=== PATIENT | female | born 1985 | race Caucasian/White ===

== ENCOUNTER 2023-01-09 09:00 | Inpatient (IN) | payer MEDICARE, MEDICAID ==
[~2023-01-09] VITALS: Ht 165.1 cm; Wt 70.9 kg
[~2023-01-09 09:00] MED LIST: CLON-595 PO; HALO2 PO; LAMO100 PO; METF-1211 PO; MIRT-89 PO; PREG50 PO; SERT-162 PO; TRAZ-257 PO
[2023-01-09] MEDS ORDERED: MAGNESIUM HYDROXIDE SUSPENSION 30 ML UDCUP PO PRN (10:15)
[2023-01-09] MEDS ORDERED: LOPERAMIDE HCL 2 MG CAPSULE PO PRN ×2 (10:15)
[2023-01-09] MEDS ORDERED: MAG HYDROX/AL HYDROX/SIMETH ES 30 ML SUSPENSION UDCUP PO PRN (10:15)
[2023-01-09] MEDS ORDERED: GuaiFENesin/D-METHORPHAN [SUGAR-FREE] 200-20MG/10 ML SYRUP UDCUP PO PRN (10:15)
[2023-01-09] MEDS ORDERED: TUBERCULIN, PURIFIED PROTEIN DERIVATIVE 5 TU/0.1 ML SYRINGE ID ONE (10:15)
[2023-01-09] MEDS ORDERED: DIAZEPAM 10 MG TABLET PO PRN (10:15)
[2023-01-09] MEDS ORDERED: HydrOXYzine PAMOATE 50 MG CAPSULE PO PRN (10:15)
[2023-01-09] MEDS ORDERED: CYANOCOBALAMIN 1,000 MCG/ML VIAL IM ONE (10:15)
[2023-01-09] MEDS ORDERED: ZOLPIDEM TARTRATE 10 MG TABLET PO PRN (10:15)
[2023-01-09 11:43] VITALS: BP 117/78
[2023-01-09 13:42] LABS: GLUCOMETER DEV NAME(LOC) POC.BV
[2023-01-09 13:48] VITALS: BP 117/79
[2023-01-09 15:00] VITALS: BP 113/77
[2023-01-09 16:00] VITALS: BP 122/72
[2023-01-09 17:00] VITALS: BP 108/74
[2023-01-09] MEDS ORDERED: INFLUENZA VIRUS VACCINE QVS 2022-23 (6MO+)/PF 60 MCG/0.5 ML SYRINGE IM. ONE (17:30)
[2023-01-09] MEDS: HALOPERIDOL 1 MG TABLET PO SCH (18:11)
[2023-01-09] MEDS: THIAMINE 100 MG TABLET PO SCH (18:12)
[2023-01-09 20:11] VITALS: BP 112/75
[2023-01-09] MEDS: MELATONIN 5 MG TABLET PO SCH (21:41)
[2023-01-09] MEDS: TraZODone HCL 150 MG TABLET PO SCH (21:41)
[2023-01-09] MEDS: MIRTAZAPINE 30 MG TABLET PO SCH (21:42)
[2023-01-09] MEDS ORDERED: GLUCAGON,HUMAN RECOMBINANT 1 MG VIAL IM PRN (22:15)
[2023-01-09] MEDS ORDERED: INSULIN LISPRO 100 UNITS/ML SQ PRN (22:15)
[2023-01-10] VITALS (10 sets, daily range): BP systolic 105–140; BP diastolic 63–90
[2023-01-10 06:46] LABS: GLUCOMETER DEV NAME(LOC) BV2X.2; GLUCOSE,POINT OF CARE 76 MG/DL (70-110)
[2023-01-10] MEDS ORDERED: DIAZEPAM 10 MG TABLET PO PRN (07:00)
[2023-01-10 07:37] LABS: BASOPHILS % (AUTO) 0.5 % (0.0-2.0); EOSINOPHILS % (AUTO) 1.6 % (1.0-6.0); HEMATOCRIT 34.8 % (36-46); HEMOGLOBIN 11.1 g/dL (12.0-16.0); LYMPHOCYTES # (AUTO) 1.8 K/uL (1.0-4.8); LYMPHOCYTES % (AUTO) 29.3 % (22.0-44.0); MEAN CORPUSCULAR HEMOGLOBIN 24.1 pg (26.0-34.0); MEAN CORPUSCULAR HGB CONC 31.8 G/dL (31.0-37.0); MEAN CORPUSCULAR VOLUME 76 fL (80-100); MONOCYTES # (AUTO) 0.4 K/uL (0.1-1.0); MONOCYTES % (AUTO) 7.1 % (2.0-9.0); NEUTROPHILS # (AUTO) 3.7 K/uL (1.8-7.7); NEUTROPHILS % (AUTO) 61.5 % (40.0-70.0); PLATELET COUNT (AUTO) 301 K/uL (150-450); RED BLOOD CELL COUNT(AUTO) 4.58 MIL/uL (4.00-5.20); RED CELL DISTRIBUTION WIDTH 18.8 % (11.5-14.5)
[2023-01-10 07:44] LABS: HEMOGLOBIN A1C 5.2 % (3.8-5.6)
[2023-01-10 07:57] LABS: AMPHET/METH SCREEN,URINE NEGATIVE (NEGATIVE); BARBITURATE SCREEN, URINE NEGATIVE (NEGATIVE); BENZODIAZEPINES SCREEN,URINE NEGATIVE (NEGATIVE); CANNABINOID SCREEN,URINE NEGATIVE (NEGATIVE); COCAINE SCREEN,URINE NEGATIVE (NEGATIVE); METHADONE SCREEN, URINE NEGATIVE (NEGATIVE); OPIATE SCREEN,URINE NEGATIVE (NEGATIVE); PHENCYCLIDINE SCREEN,URINE NEGATIVE (NEGATIVE)
[2023-01-10 07:59] LABS: ALANINE AMINOTRANSFERASE 23 U/L (12-78); ALKALINE PHOSPHATASE 73 U/L (46-116); ANION GAP 5 mmol/L (8-16); ASPARTATE AMINOTRANSFERASE 21 U/L (15-37); BILIRUBIN,TOTAL 0.2 mg/dL (0.1-1.0); CARBON DIOXIDE 31 mmol/L (22-29); CHLORIDE 106 mmol/L (98-107); CHOL/HDL RATIO 3.2 (3.9-5.7); CHOLESTEROL 155 mg/dL (131-200); CREATININE 0.92 mg/dL (0.60-1.30); FREE T4 (FREE THYROXINE) 1.11 ng/dL (0.76-1.46); GLOMERULAR FILTR. RATE CALC > 60 mL/min (>60); GLUCOSE,RANDOM 82 mg/dL (70-110); HDL CHOLESTEROL 49 mg/dL (40-60); LDL CHOL (CALC.) 93 mg/dL (0-130); POTASSIUM 3.9 mmol/L (3.5-5.1); SODIUM SERUM 142 mmol/L (136-145); THYROID STIMULATING HORMONE 3.49 uIU/mL (0.36-3.74); TOTAL PROTEIN, SERUM 7.7 g/dL (6.4-8.2); TRIGLYCERIDES 65 mg/dL (15-150); UREA NITROGEN, BLOOD 13 mg/dL (7-18)
[2023-01-10] MEDS: HALOPERIDOL 1 MG TABLET PO SCH ×3 (08:45→16:08)
[2023-01-10] MEDS: SERTRALINE HCL 100 MG TABLET PO SCH (08:45)
[2023-01-10] MEDS: NALTREXONE HCL 50 MG TABLET PO SCH (08:45)
[2023-01-10] MEDS: LamoTRIgine 100 MG TABLET PO SCH (08:45)
[2023-01-10] MEDS: THIAMINE 100 MG TABLET PO SCH ×2 (08:45→16:08)
[2023-01-10] MEDS: OMEGA-3/DHA/EPA/FISH OIL 1,000 MG CAPSULE PO SCH (08:45)
[2023-01-10] MEDS: DIAZEPAM 10 MG TABLET PO SCH ×4 (08:45→20:34)
[2023-01-10] MEDS: MetFORMIN HCL 500 MG TABLET PO SCH (08:45)
[2023-01-10] MEDS: MULTIVITAMINS WITH MINERALS, THERAPEUTIC TABLET PO SCH (08:45)
[2023-01-10] MEDS: FOLIC ACID 1 MG TABLET PO SCH (08:46)
[2023-01-10] MEDS: ACETAMINOPHEN 325 MG TABLET PO PRN (12:49)
[2023-01-10 17:01] LABS: GLUCOMETER DEV NAME(LOC) BV2X.2; GLUCOSE,POINT OF CARE 121 MG/DL (70-110)
[2023-01-10] MEDS: TraZODone HCL 150 MG TABLET PO SCH (20:31)
[2023-01-10] MEDS: MIRTAZAPINE 30 MG TABLET PO SCH (20:32)
[2023-01-10] MEDS: MELATONIN 5 MG TABLET PO SCH (20:32)
[2023-01-11] VITALS (9 sets, daily range): BP systolic 120–142; BP diastolic 71–90
[2023-01-11 06:51] LABS: GLUCOMETER DEV NAME(LOC) BV2X.2; GLUCOSE,POINT OF CARE 81 MG/DL (70-110)
[2023-01-11] MEDS: NALTREXONE HCL 50 MG TABLET PO SCH (09:12)
[2023-01-11] MEDS: MetFORMIN HCL 500 MG TABLET PO SCH (09:12)
[2023-01-11] MEDS: SERTRALINE HCL 100 MG TABLET PO SCH (09:12)
[2023-01-11] MEDS: MULTIVITAMINS WITH MINERALS, THERAPEUTIC TABLET PO SCH (09:12)
[2023-01-11] MEDS: HALOPERIDOL 1 MG TABLET PO SCH ×3 (09:12→16:21)
[2023-01-11] MEDS: FOLIC ACID 1 MG TABLET PO SCH (09:12)
[2023-01-11] MEDS: THIAMINE 100 MG TABLET PO SCH ×2 (09:12→16:21)
[2023-01-11] MEDS: LamoTRIgine 100 MG TABLET PO SCH (09:13)
[2023-01-11] MEDS: DIAZEPAM 10 MG TABLET PO SCH ×4 (09:13→20:04)
[2023-01-11] MEDS: OMEGA-3/DHA/EPA/FISH OIL 1,000 MG CAPSULE PO SCH (09:13)
[2023-01-11 16:47] LABS: GLUCOMETER DEV NAME(LOC) BV2X.2; GLUCOSE,POINT OF CARE 108 MG/DL (70-110)
[2023-01-11] MEDS: MIRTAZAPINE 30 MG TABLET PO SCH (20:03)
[2023-01-11] MEDS: ACETAMINOPHEN 325 MG TABLET PO PRN (20:04)
[2023-01-11] MEDS: MELATONIN 5 MG TABLET PO SCH (20:04)
[2023-01-11] MEDS: TraZODone HCL 150 MG TABLET PO SCH (20:04)
[2023-01-12 03:00] VITALS: BP 128/84
[2023-01-12] MEDS ORDERED: DIAZEPAM 5 MG TABLET PO PRN (07:00)
[2023-01-12 07:09] VITALS: BP 113/64
[2023-01-12 07:11] LABS: GLUCOMETER DEV NAME(LOC) BV2X.2; GLUCOSE,POINT OF CARE 155 MG/DL (70-110)
[2023-01-12] MEDS: THIAMINE 100 MG TABLET PO SCH ×2 (08:11→16:31)
[2023-01-12] MEDS: MULTIVITAMINS WITH MINERALS, THERAPEUTIC TABLET PO SCH (08:11)
[2023-01-12] MEDS: DIAZEPAM 5 MG TABLET PO SCH ×3 (08:12→16:31)
[2023-01-12] MEDS: LamoTRIgine 100 MG TABLET PO SCH (08:12)
[2023-01-12] MEDS: OMEGA-3/DHA/EPA/FISH OIL 1,000 MG CAPSULE PO SCH (08:12)
[2023-01-12] MEDS: FOLIC ACID 1 MG TABLET PO SCH (08:12)
[2023-01-12] MEDS: HALOPERIDOL 1 MG TABLET PO SCH ×3 (08:13→16:31)
[2023-01-12] MEDS: SERTRALINE HCL 100 MG TABLET PO SCH (08:14)
[2023-01-12] MEDS: NALTREXONE HCL 50 MG TABLET PO SCH (08:14)
[2023-01-12 08:22] VITALS: BP 117/68
[2023-01-12 12:06] LABS: GLUCOMETER DEV NAME(LOC) BV2X.2; GLUCOSE,POINT OF CARE 136 MG/DL (70-110)
[2023-01-12 16:36] LABS: GLUCOMETER DEV NAME(LOC) BV2X.2; GLUCOSE,POINT OF CARE 73 MG/DL (70-110)
[2023-01-12] MEDS ORDERED: DIAZEPAM 10 MG TABLET PO PRN (19:45)
[2023-01-12 20:21] VITALS: BP 127/78
[2023-01-12] MEDS: TraZODone HCL 150 MG TABLET PO SCH (20:37)
[2023-01-12] MEDS: MELATONIN 5 MG TABLET PO SCH (20:38)
[2023-01-12] MEDS: MIRTAZAPINE 30 MG TABLET PO SCH (20:38)
[2023-01-13 06:31] LABS: GLUCOMETER DEV NAME(LOC) BV2X.2; GLUCOSE,POINT OF CARE 62 MG/DL (70-110)
[2023-01-13 06:57] LABS: GLUCOMETER DEV NAME(LOC) BV2X.2; GLUCOSE,POINT OF CARE 143 MG/DL (70-110)
[2023-01-13] MEDS ORDERED: DIAZEPAM 5 MG TABLET PO PRN (07:00)
[2023-01-13] MEDS ORDERED: DIAZEPAM 10 MG TABLET PO PRN (07:00)
[2023-01-13] MEDS: LamoTRIgine 100 MG TABLET PO SCH (08:02)
[2023-01-13] MEDS: THIAMINE 100 MG TABLET PO SCH ×2 (08:02→16:26)
[2023-01-13] MEDS: SERTRALINE HCL 100 MG TABLET PO SCH (08:02)
[2023-01-13] MEDS: OMEGA-3/DHA/EPA/FISH OIL 1,000 MG CAPSULE PO SCH (08:02)
[2023-01-13] MEDS: DIAZEPAM 10 MG TABLET PO SCH ×2 (08:03→13:10)
[2023-01-13] MEDS: FOLIC ACID 1 MG TABLET PO SCH (08:03)
[2023-01-13] MEDS: NALTREXONE HCL 50 MG TABLET PO SCH (08:03)
[2023-01-13] MEDS: MULTIVITAMINS WITH MINERALS, THERAPEUTIC TABLET PO SCH (08:03)
[2023-01-13 08:19] VITALS: BP 110/55
[2023-01-13] MEDS: ACAMPROSATE CALCIUM 333 MG DR TABLET PO SCH (16:26)
[2023-01-13 17:43] VITALS: BP 140/80
[2023-01-13] MEDS: ACETAMINOPHEN 325 MG TABLET PO PRN (17:43)
[2023-01-13 19:21] LABS: GLUCOMETER DEV NAME(LOC) BV2X.2; GLUCOSE,POINT OF CARE 121 MG/DL (70-110)
[2023-01-13] MEDS: MIRTAZAPINE 30 MG TABLET PO SCH (20:31)
[2023-01-13] MEDS: MELATONIN 5 MG TABLET PO SCH (20:31)
[2023-01-13] MEDS ORDERED: TraZODone HCL 150 MG TABLET PO SCH (21:00)
[2023-01-13 21:29] VITALS: BP 140/80
[2023-01-14 06:26] LABS: GLUCOMETER DEV NAME(LOC) BV2X.2; GLUCOSE,POINT OF CARE 67 MG/DL (70-110)
[2023-01-14 07:00] LABS: GLUCOMETER DEV NAME(LOC) BV2X.2; GLUCOSE,POINT OF CARE 89 MG/DL (70-110)
[2023-01-14 08:08] VITALS: BP 111/73
[2023-01-14] MEDS: OMEGA-3/DHA/EPA/FISH OIL 1,000 MG CAPSULE PO SCH (08:16)
[2023-01-14] MEDS: ACAMPROSATE CALCIUM 333 MG DR TABLET PO SCH ×3 (08:16→16:29)
[2023-01-14] MEDS: FOLIC ACID 1 MG TABLET PO SCH (08:17)
[2023-01-14] MEDS: LamoTRIgine 100 MG TABLET PO SCH (08:17)
[2023-01-14] MEDS: THIAMINE 100 MG TABLET PO SCH ×2 (08:18→16:29)
[2023-01-14] MEDS: SERTRALINE HCL 100 MG TABLET PO SCH (08:18)
[2023-01-14] MEDS: NALTREXONE HCL 50 MG TABLET PO SCH (08:18)
[2023-01-14] MEDS: MULTIVITAMINS WITH MINERALS, THERAPEUTIC TABLET PO SCH (08:18)
[2023-01-14] MEDS: PROMETHAZINE HCL 25 MG TABLET PO PRN (08:35)
[2023-01-14] MEDS ORDERED: DIAZEPAM 10 MG TABLET PO PRN (14:45)
[2023-01-14] MEDS ORDERED: DIAZEPAM 10 MG TABLET PO ONE (14:45)
[2023-01-14 15:52] VITALS: BP 144/91
[2023-01-14 16:41] LABS: GLUCOMETER DEV NAME(LOC) BV2X.2; GLUCOSE,POINT OF CARE 103 MG/DL (70-110)
[2023-01-14 17:00] VITALS: BP 139/94
[2023-01-14 18:00] VITALS: BP 130/82
[2023-01-14 18:18] VITALS: BP 144/91
[2023-01-14] MEDS: ACETAMINOPHEN 325 MG TABLET PO PRN (18:18)
[2023-01-14 20:21] VITALS: BP 131/81
[2023-01-14] MEDS: MELATONIN 5 MG TABLET PO SCH (20:59)
[2023-01-14] MEDS: MIRTAZAPINE 30 MG TABLET PO SCH (21:00)
[2023-01-14] MEDS: TraZODone HCL 100 MG TABLET PO SCH (21:00)
[2023-01-15] VITALS (8 sets, daily range): BP systolic 125–141; BP diastolic 75–94
[2023-01-15 06:42] LABS: GLUCOMETER DEV NAME(LOC) BV2X.2; GLUCOSE,POINT OF CARE 74 MG/DL (70-110)
[2023-01-15] MEDS ORDERED: DIAZEPAM 5 MG TABLET PO PRN (07:00)
[2023-01-15] MEDS ORDERED: DIAZEPAM 10 MG TABLET PO PRN (07:00)
[2023-01-15] MEDS: ACAMPROSATE CALCIUM 333 MG DR TABLET PO SCH ×3 (08:16→16:23)
[2023-01-15] MEDS: FOLIC ACID 1 MG TABLET PO SCH (08:17)
[2023-01-15] MEDS: OMEGA-3/DHA/EPA/FISH OIL 1,000 MG CAPSULE PO SCH (08:17)
[2023-01-15] MEDS: THIAMINE 100 MG TABLET PO SCH ×2 (08:17→16:23)
[2023-01-15] MEDS: SERTRALINE HCL 100 MG TABLET PO SCH (08:18)
[2023-01-15] MEDS: NALTREXONE HCL 50 MG TABLET PO SCH (08:18)
[2023-01-15] MEDS: MULTIVITAMINS WITH MINERALS, THERAPEUTIC TABLET PO SCH (08:18)
[2023-01-15] MEDS: LISINOPRIL 5 MG TABLET PO SCH (08:19)
[2023-01-15] MEDS: LamoTRIgine 100 MG TABLET PO SCH (08:19)
[2023-01-15] MEDS: DIAZEPAM 10 MG TABLET PO SCH ×5 (08:32→22:10)
[2023-01-15] MEDS ORDERED: DIAZEPAM 5 MG TABLET PO SCH (09:00)
[2023-01-15 10:51] LABS: GLUCOMETER DEV NAME(LOC) POC.BV
[2023-01-15 16:56] LABS: GLUCOMETER DEV NAME(LOC) BV2X.2; GLUCOSE,POINT OF CARE 106 MG/DL (70-110)
[2023-01-15] MEDS: MIRTAZAPINE 30 MG TABLET PO SCH (20:54)
[2023-01-15] MEDS: MELATONIN 5 MG TABLET PO SCH (20:54)
[2023-01-15] MEDS: TraZODone HCL 100 MG TABLET PO SCH (21:00)
[2023-01-16 06:21] LABS: GLUCOMETER DEV NAME(LOC) BV2X.2; GLUCOSE,POINT OF CARE 75 MG/DL (70-110)
[2023-01-16] MEDS ORDERED: DIAZEPAM 5 MG TABLET PO PRN (07:00)
[2023-01-16 08:12] VITALS: BP 106/60
[2023-01-16 08:14] VITALS: BP 106/60
[2023-01-16 08:15] VITALS: BP 106/60
[2023-01-16] MEDS: ACAMPROSATE CALCIUM 333 MG DR TABLET PO SCH ×3 (08:18→17:57)
[2023-01-16] MEDS: NALTREXONE HCL 50 MG TABLET PO SCH (08:18)
[2023-01-16] MEDS: OMEGA-3/DHA/EPA/FISH OIL 1,000 MG CAPSULE PO SCH (08:18)
[2023-01-16] MEDS: DIAZEPAM 10 MG TABLET PO SCH ×4 (08:19→20:50)
[2023-01-16] MEDS: MULTIVITAMINS WITH MINERALS, THERAPEUTIC TABLET PO SCH (08:19)
[2023-01-16] MEDS: SERTRALINE HCL 100 MG TABLET PO SCH (08:20)
[2023-01-16] MEDS: LISINOPRIL 5 MG TABLET PO SCH (08:20)
[2023-01-16] MEDS: THIAMINE 100 MG TABLET PO SCH ×2 (08:20→17:29)
[2023-01-16] MEDS: LamoTRIgine 100 MG TABLET PO SCH (08:20)
[2023-01-16] MEDS: FOLIC ACID 1 MG TABLET PO SCH (08:20)
[2023-01-16 17:21] LABS: GLUCOMETER DEV NAME(LOC) BV2X.2; GLUCOSE,POINT OF CARE 87 MG/DL (70-110)
[2023-01-16 20:00] VITALS: BP 109/61
[2023-01-16] MEDS: TraZODone HCL 100 MG TABLET PO SCH (20:50)
[2023-01-16] MEDS: MELATONIN 5 MG TABLET PO SCH (20:50)
[2023-01-16] MEDS: MIRTAZAPINE 30 MG TABLET PO SCH (20:53)
[2023-01-17 06:21] LABS: GLUCOMETER DEV NAME(LOC) BV2X.2; GLUCOSE,POINT OF CARE 77 MG/DL (70-110)
[2023-01-17] MEDS ORDERED: DIAZEPAM 5 MG TABLET PO PRN (07:00)
[2023-01-17 08:01] VITALS: BP 119/68
[2023-01-17 08:02] VITALS: BP 119/68
[2023-01-17] MEDS: LamoTRIgine 100 MG TABLET PO SCH (08:46)
[2023-01-17] MEDS: DIAZEPAM 5 MG TABLET PO SCH ×4 (08:46→20:31)
[2023-01-17] MEDS: NALTREXONE HCL 50 MG TABLET PO SCH (08:47)
[2023-01-17] MEDS: LISINOPRIL 5 MG TABLET PO SCH (08:47)
[2023-01-17] MEDS: ARIPiprazole 5 MG TABLET PO SCH (08:47)
[2023-01-17] MEDS: SERTRALINE HCL 100 MG TABLET PO SCH (08:47)
[2023-01-17] MEDS: MULTIVITAMINS WITH MINERALS, THERAPEUTIC TABLET PO SCH (08:47)
[2023-01-17] MEDS: FOLIC ACID 1 MG TABLET PO SCH (08:48)
[2023-01-17] MEDS: THIAMINE 100 MG TABLET PO SCH ×2 (08:48→16:30)
[2023-01-17] MEDS: OMEGA-3/DHA/EPA/FISH OIL 1,000 MG CAPSULE PO SCH (08:48)
[2023-01-17] MEDS: ACAMPROSATE CALCIUM 333 MG DR TABLET PO SCH ×3 (08:48→16:30)
[2023-01-17] MEDS: PROMETHAZINE HCL 25 MG TABLET PO PRN (10:25)
[2023-01-17] MEDS: ACETAMINOPHEN 325 MG TABLET PO PRN (16:00)
[2023-01-17 16:26] LABS: GLUCOMETER DEV NAME(LOC) BV2X.2; GLUCOSE,POINT OF CARE 90 MG/DL (70-110)
[2023-01-17] MEDS: MELATONIN 5 MG TABLET PO SCH (20:30)
[2023-01-17] MEDS: MIRTAZAPINE 30 MG TABLET PO SCH (20:30)
[2023-01-17] MEDS: TraZODone HCL 100 MG TABLET PO SCH (20:31)
[2023-01-17 20:48] VITALS: BP 116/63
[2023-01-17 20:57] VITALS: BP 116/63
[2023-01-18 06:51] LABS: GLUCOMETER DEV NAME(LOC) BV2X.2; GLUCOSE,POINT OF CARE 74 MG/DL (70-110)
[2023-01-18] MEDS ORDERED: DIAZEPAM 5 MG TABLET PO PRN (07:00)
[2023-01-18] MEDS: ACAMPROSATE CALCIUM 333 MG DR TABLET PO SCH ×3 (09:38→17:36)
[2023-01-18] MEDS: OMEGA-3/DHA/EPA/FISH OIL 1,000 MG CAPSULE PO SCH (09:38)
[2023-01-18] MEDS: ARIPiprazole 5 MG TABLET PO SCH (09:38)
[2023-01-18] MEDS: LamoTRIgine 100 MG TABLET PO SCH (09:39)
[2023-01-18] MEDS: MULTIVITAMINS WITH MINERALS, THERAPEUTIC TABLET PO SCH (09:39)
[2023-01-18] MEDS: NALTREXONE HCL 50 MG TABLET PO SCH (09:40)
[2023-01-18] MEDS: THIAMINE 100 MG TABLET PO SCH ×2 (09:40→16:51)
[2023-01-18] MEDS: SERTRALINE HCL 100 MG TABLET PO SCH (09:40)
[2023-01-18] MEDS: FOLIC ACID 1 MG TABLET PO SCH (09:41)
[2023-01-18] MEDS: LISINOPRIL 5 MG TABLET PO SCH (10:53)
[2023-01-18 11:46] LABS: GLUCOMETER DEV NAME(LOC) BV2X.2; GLUCOSE,POINT OF CARE 137 MG/DL (70-110)
[2023-01-18 12:54] VITALS: BP 116/64
[2023-01-18 13:14] VITALS: BP 110/65
[2023-01-18 16:51] LABS: GLUCOMETER DEV NAME(LOC) BV2X.2; GLUCOSE,POINT OF CARE 110 MG/DL (70-110)
[2023-01-18] MEDS: PROMETHAZINE HCL 25 MG TABLET PO PRN (16:51)
[2023-01-18 20:38] VITALS: BP 135/89
[2023-01-18 20:40] VITALS: BP 135/89
[2023-01-18] MEDS: TraZODone HCL 100 MG TABLET PO SCH (20:41)
[2023-01-18] MEDS: MELATONIN 5 MG TABLET PO SCH (20:42)
[2023-01-18] MEDS: MIRTAZAPINE 30 MG TABLET PO SCH (20:43)
[2023-01-19 06:42] LABS: GLUCOMETER DEV NAME(LOC) BV2X.2; GLUCOSE,POINT OF CARE 76 MG/DL (70-110)
[2023-01-19 08:13] VITALS: BP 105/72
[2023-01-19] MEDS: PROMETHAZINE HCL 25 MG TABLET PO PRN (08:27)
[2023-01-19] MEDS: NALTREXONE HCL 50 MG TABLET PO SCH (08:31)
[2023-01-19] MEDS: MULTIVITAMINS WITH MINERALS, THERAPEUTIC TABLET PO SCH (08:31)
[2023-01-19] MEDS: FOLIC ACID 1 MG TABLET PO SCH (08:31)
[2023-01-19] MEDS: THIAMINE 100 MG TABLET PO SCH (08:31)
[2023-01-19] MEDS: SERTRALINE HCL 100 MG TABLET PO SCH (08:31)
[2023-01-19] MEDS: ARIPiprazole 5 MG TABLET PO SCH (08:32)
[2023-01-19] MEDS: LamoTRIgine 100 MG TABLET PO SCH (08:32)
[2023-01-19] MEDS: OMEGA-3/DHA/EPA/FISH OIL 1,000 MG CAPSULE PO SCH (08:32)
[2023-01-19] MEDS: ACAMPROSATE CALCIUM 333 MG DR TABLET PO SCH ×3 (08:32→16:50)
[2023-01-19] MEDS: LISINOPRIL 5 MG TABLET PO SCH (08:32)
[2023-01-19] MEDS: ACETAMINOPHEN 325 MG TABLET PO PRN (13:29)
[2023-01-19 16:56] LABS: GLUCOMETER DEV NAME(LOC) BV2S.; GLUCOSE,POINT OF CARE 123 MG/DL (70-110)
[2023-01-19] MEDS: MELATONIN 5 MG TABLET PO SCH (20:06)
[2023-01-19] MEDS: TraZODone HCL 100 MG TABLET PO SCH (20:06)
[2023-01-19] MEDS: MIRTAZAPINE 30 MG TABLET PO SCH (20:07)
[2023-01-19] MEDS: PRAZOSIN HCL 1 MG CAPSULE PO SCH (20:07)
[2023-01-19 20:34] VITALS: BP 115/74
[2023-01-19 21:07] LABS: GLUCOMETER DEV NAME(LOC) BV2S.; GLUCOSE,POINT OF CARE 87 MG/DL (70-110)
[2023-01-20 00:54] VITALS: BP 115/74
[2023-01-20 06:26] LABS: GLUCOMETER DEV NAME(LOC) BV2X.2; GLUCOSE,POINT OF CARE 79 MG/DL (70-110)
[2023-01-20 08:27] VITALS: BP 110/68
[2023-01-20] MEDS: NALTREXONE HCL 50 MG TABLET PO SCH (08:30)
[2023-01-20] MEDS: OMEGA-3/DHA/EPA/FISH OIL 1,000 MG CAPSULE PO SCH (08:30)
[2023-01-20] MEDS: ARIPiprazole 5 MG TABLET PO SCH (08:30)
[2023-01-20] MEDS: LamoTRIgine 100 MG TABLET PO SCH (08:30)
[2023-01-20] MEDS: MULTIVITAMINS WITH MINERALS, THERAPEUTIC TABLET PO SCH (08:30)
[2023-01-20] MEDS: ACAMPROSATE CALCIUM 333 MG DR TABLET PO SCH ×3 (08:31→16:45)
[2023-01-20] MEDS: SERTRALINE HCL 100 MG TABLET PO SCH (08:32)
[2023-01-20] MEDS: LISINOPRIL 5 MG TABLET PO SCH (08:33)
[2023-01-20 09:52] VITALS: BP 110/68
[2023-01-20 17:01] LABS: GLUCOMETER DEV NAME(LOC) BV2X.2; GLUCOSE,POINT OF CARE 91 MG/DL (70-110)
[2023-01-20] MEDS: TraZODone HCL 100 MG TABLET PO SCH (20:18)
[2023-01-20] MEDS: MELATONIN 5 MG TABLET PO SCH (20:18)
[2023-01-20] MEDS: PRAZOSIN HCL 1 MG CAPSULE PO SCH (20:19)
[2023-01-20] MEDS: MIRTAZAPINE 30 MG TABLET PO SCH (20:20)
[2023-01-20 20:28] VITALS: BP 131/79
[2023-01-20 20:30] VITALS: BP 131/79
[2023-01-21 06:26] LABS: GLUCOMETER DEV NAME(LOC) BV2X.2; GLUCOSE,POINT OF CARE 73 MG/DL (70-110)
[2023-01-21 08:32] VITALS: BP 104/66
[2023-01-21] MEDS: ACAMPROSATE CALCIUM 333 MG DR TABLET PO SCH ×3 (09:10→16:29)
[2023-01-21] MEDS: ARIPiprazole 5 MG TABLET PO SCH (09:10)
[2023-01-21] MEDS: OMEGA-3/DHA/EPA/FISH OIL 1,000 MG CAPSULE PO SCH (09:10)
[2023-01-21] MEDS: NALTREXONE HCL 50 MG TABLET PO SCH (09:11)
[2023-01-21] MEDS: LamoTRIgine 100 MG TABLET PO SCH (09:11)
[2023-01-21] MEDS: SERTRALINE HCL 100 MG TABLET PO SCH (09:12)
[2023-01-21] MEDS: LISINOPRIL 5 MG TABLET PO SCH (09:13)
[2023-01-21] MEDS: MULTIVITAMINS WITH MINERALS, THERAPEUTIC TABLET PO SCH (09:15)
[2023-01-21 16:35] LABS: GLUCOMETER DEV NAME(LOC) BV2X.2; GLUCOSE,POINT OF CARE 100 MG/DL (70-110)
[2023-01-21] MEDS: PRAZOSIN HCL 1 MG CAPSULE PO SCH (20:38)
[2023-01-21] MEDS: MIRTAZAPINE 30 MG TABLET PO SCH (20:38)
[2023-01-21] MEDS: MELATONIN 5 MG TABLET PO SCH (20:38)
[2023-01-21] MEDS: TraZODone HCL 100 MG TABLET PO SCH (20:38)
[2023-01-21 20:42] VITALS: BP 141/90
[2023-01-22 06:26] LABS: GLUCOMETER DEV NAME(LOC) BV2X.2; GLUCOSE,POINT OF CARE 77 MG/DL (70-110)
[2023-01-22 07:26] LABS: GLUCOMETER DEV NAME(LOC) POC.BV
[2023-01-22 08:10] VITALS: BP 110/69
[2023-01-22] MEDS: ACAMPROSATE CALCIUM 333 MG DR TABLET PO SCH ×3 (08:21→16:30)
[2023-01-22] MEDS: ARIPiprazole 5 MG TABLET PO SCH (08:21)
[2023-01-22] MEDS: NALTREXONE HCL 50 MG TABLET PO SCH (08:21)
[2023-01-22] MEDS: OMEGA-3/DHA/EPA/FISH OIL 1,000 MG CAPSULE PO SCH (08:23)
[2023-01-22] MEDS: MULTIVITAMINS WITH MINERALS, THERAPEUTIC TABLET PO SCH (08:25)
[2023-01-22] MEDS: SERTRALINE HCL 100 MG TABLET PO SCH (08:27)
[2023-01-22] MEDS: LISINOPRIL 5 MG TABLET PO SCH (08:27)
[2023-01-22] MEDS: LamoTRIgine 100 MG TABLET PO SCH (08:27)
[2023-01-22 11:36] LABS: GLUCOMETER DEV NAME(LOC) BV2X.2; GLUCOSE,POINT OF CARE 119 MG/DL (70-110)
[2023-01-22 16:41] LABS: GLUCOMETER DEV NAME(LOC) BV2X.2; GLUCOSE,POINT OF CARE 98 MG/DL (70-110)
[2023-01-22 20:14] VITALS: BP 129/82
[2023-01-22] MEDS: PRAZOSIN HCL 1 MG CAPSULE PO SCH (20:16)
[2023-01-22] MEDS: TraZODone HCL 100 MG TABLET PO SCH (20:17)
[2023-01-22] MEDS: MIRTAZAPINE 30 MG TABLET PO SCH (20:17)
[2023-01-22] MEDS: MELATONIN 5 MG TABLET PO SCH (21:04)
[2023-01-23 06:12] LABS: GLUCOMETER DEV NAME(LOC) BV2X.2; GLUCOSE,POINT OF CARE 78 MG/DL (70-110)
[2023-01-23 08:09] VITALS: BP 131/71
[2023-01-23] MEDS: ARIPiprazole 5 MG TABLET PO SCH (08:37)
[2023-01-23] MEDS: ACAMPROSATE CALCIUM 333 MG DR TABLET PO SCH ×3 (08:38→17:04)
[2023-01-23] MEDS: NALTREXONE HCL 50 MG TABLET PO SCH (08:38)
[2023-01-23] MEDS: LamoTRIgine 100 MG TABLET PO SCH (08:38)
[2023-01-23] MEDS: SERTRALINE HCL 100 MG TABLET PO SCH (08:38)
[2023-01-23] MEDS: OMEGA-3/DHA/EPA/FISH OIL 1,000 MG CAPSULE PO SCH (08:38)
[2023-01-23] MEDS: MULTIVITAMINS WITH MINERALS, THERAPEUTIC TABLET PO SCH (08:38)
[2023-01-23] MEDS: LISINOPRIL 5 MG TABLET PO SCH (08:38)
[2023-01-23] MEDS ORDERED: ARIP5TAB37 PO (15:43)
[2023-01-23] MEDS ORDERED: NALT50TA PO (15:43)
[2023-01-23] MEDS ORDERED: PRAZ1 PO (15:43)
[2023-01-23] MEDS ORDERED: TRAZ-257 PO (15:43)
[2023-01-23] MEDS ORDERED: LAMO100 PO (15:43)
[2023-01-23] MEDS ORDERED: SERT-440 PO (15:43)
[2023-01-23] MEDS ORDERED: OMEG-135 PO (15:43)
[2023-01-23] MEDS ORDERED: ACAM333T7 PO (15:43)
[2023-01-23] MEDS ORDERED: MELA5TAB40 PO (15:43)
[2023-01-23] MEDS ORDERED: MIRT-93 PO (15:43)
[2023-01-23 17:01] LABS: GLUCOMETER DEV NAME(LOC) BV2X.2; GLUCOSE,POINT OF CARE 135 MG/DL (70-110)
[2023-01-23] MEDS: PROMETHAZINE HCL 25 MG TABLET PO PRN (18:21)
[2023-01-23] MEDS: MELATONIN 5 MG TABLET PO SCH (20:23)
[2023-01-23] MEDS: MIRTAZAPINE 30 MG TABLET PO SCH (20:23)
[2023-01-23] MEDS: PRAZOSIN HCL 1 MG CAPSULE PO SCH (20:23)
[2023-01-23] MEDS: TraZODone HCL 100 MG TABLET PO SCH (20:23)
[2023-01-23 20:29] VITALS: BP 126/68
[2023-01-23] MEDS: HALOPERIDOL 5 MG TABLET PO PRN (21:08)
[2023-01-24 06:31] LABS: GLUCOMETER DEV NAME(LOC) BV2X.2; GLUCOSE,POINT OF CARE 82 MG/DL (70-110)
[2023-01-24 08:11] VITALS: BP 145/92
[2023-01-24] MEDS: ARIPiprazole 5 MG TABLET PO SCH (08:37)
[2023-01-24] MEDS: MULTIVITAMINS WITH MINERALS, THERAPEUTIC TABLET PO SCH (08:38)
[2023-01-24] MEDS: ACAMPROSATE CALCIUM 333 MG DR TABLET PO SCH ×3 (08:38→16:32)
[2023-01-24] MEDS: NALTREXONE HCL 50 MG TABLET PO SCH (08:38)
[2023-01-24] MEDS: OMEGA-3/DHA/EPA/FISH OIL 1,000 MG CAPSULE PO SCH (08:38)
[2023-01-24] MEDS: LamoTRIgine 100 MG TABLET PO SCH (08:38)
[2023-01-24] MEDS: LISINOPRIL 5 MG TABLET PO SCH (08:38)
[2023-01-24] MEDS: SERTRALINE HCL 100 MG TABLET PO SCH (08:39)
[2023-01-24] MEDS: ACETAMINOPHEN 325 MG TABLET PO PRN (14:55)
[2023-01-24 16:47] LABS: GLUCOMETER DEV NAME(LOC) BV2X.2; GLUCOSE,POINT OF CARE 92 MG/DL (70-110)
[2023-01-24] MEDS: HALOPERIDOL 5 MG TABLET PO PRN (17:18)
[2023-01-24 20:41] VITALS: BP 146/80
[2023-01-24] MEDS: TraZODone HCL 100 MG TABLET PO SCH (20:46)
[2023-01-24] MEDS: MIRTAZAPINE 30 MG TABLET PO SCH (20:49)
[2023-01-24] MEDS: MELATONIN 5 MG TABLET PO SCH (20:49)
[2023-01-24] MEDS: PRAZOSIN HCL 1 MG CAPSULE PO SCH (20:49)
[2023-01-25 06:21] LABS: GLUCOMETER DEV NAME(LOC) BV2S.; GLUCOSE,POINT OF CARE 81 MG/DL (70-110)
[2023-01-25] MEDS: ARIPiprazole 5 MG TABLET PO SCH (08:06)
[2023-01-25] MEDS: NALTREXONE HCL 50 MG TABLET PO SCH (08:06)
[2023-01-25] MEDS: ACAMPROSATE CALCIUM 333 MG DR TABLET PO SCH ×3 (08:06→16:47)
[2023-01-25] MEDS: MULTIVITAMINS WITH MINERALS, THERAPEUTIC TABLET PO SCH (08:06)
[2023-01-25] MEDS: SERTRALINE HCL 100 MG TABLET PO SCH (08:07)
[2023-01-25] MEDS: OMEGA-3/DHA/EPA/FISH OIL 1,000 MG CAPSULE PO SCH (08:07)
[2023-01-25] MEDS: LamoTRIgine 100 MG TABLET PO SCH (08:07)
[2023-01-25] MEDS: LISINOPRIL 5 MG TABLET PO SCH (08:08)
[2023-01-25 08:50] VITALS: BP 110/76
[2023-01-25 09:07] VITALS: BP 136/72
[2023-01-25 11:41] LABS: GLUCOMETER DEV NAME(LOC) BV2X.2; GLUCOSE,POINT OF CARE 143 MG/DL (70-110)
[2023-01-25] MEDS: HALOPERIDOL 5 MG TABLET PO PRN (15:03)
[2023-01-25 16:41] LABS: GLUCOMETER DEV NAME(LOC) BV2X.2; GLUCOSE,POINT OF CARE 129 MG/DL (70-110)
[2023-01-25] MEDS: TraZODone HCL 100 MG TABLET PO SCH (19:34)
[2023-01-25] MEDS: MELATONIN 5 MG TABLET PO SCH (19:34)
[2023-01-25] MEDS: MIRTAZAPINE 30 MG TABLET PO SCH (19:34)
[2023-01-25] MEDS: PRAZOSIN HCL 1 MG CAPSULE PO SCH (20:20)
[2023-01-26] MEDS: HALOPERIDOL 5 MG TABLET PO PRN (00:22)
[2023-01-26 01:49] VITALS: BP 124/83
[2023-01-26 06:41] LABS: GLUCOMETER DEV NAME(LOC) BV2X.2; GLUCOSE,POINT OF CARE 125 MG/DL (70-110)
[2023-01-26] MEDS: MULTIVITAMINS WITH MINERALS, THERAPEUTIC TABLET PO SCH (08:35)
[2023-01-26] MEDS: OMEGA-3/DHA/EPA/FISH OIL 1,000 MG CAPSULE PO SCH (08:35)
[2023-01-26] MEDS: ACAMPROSATE CALCIUM 333 MG DR TABLET PO SCH (08:35)
[2023-01-26] MEDS: ARIPiprazole 5 MG TABLET PO SCH (08:35)
[2023-01-26] MEDS: NALTREXONE HCL 50 MG TABLET PO SCH (08:35)
[2023-01-26] MEDS: LISINOPRIL 5 MG TABLET PO SCH (08:36)
[2023-01-26] MEDS: LamoTRIgine 100 MG TABLET PO SCH (08:36)
[2023-01-26] MEDS: SERTRALINE HCL 100 MG TABLET PO SCH (08:36)
== END 2023-01-26 10:20 | disposition home or self-care (01) | DRG 885 ==
LOC: B2X 10:05
PROVIDERS: ADMIT Psychiatry & Neurology Psychiatry; ATTEND Psychiatry & Neurology Psychiatry
DX: F31.4 Bipolar disorder, current episode depressed, severe, without psychotic features (principal); F10.239 Alcohol dependence with withdrawal, unspecified; Z20.822 Contact with and (suspected) exposure to COVID-19; E11.9 Type 2 diabetes mellitus without complications; E55.9 Vitamin D deficiency, unspecified; I10 Essential (primary) hypertension; D64.9 Anemia, unspecified; F41.9 Anxiety disorder, unspecified; Y90.9 Presence of alcohol in blood, level not specified; E03.8 Other specified hypothyroidism; Z82.49 Family history of ischemic heart disease and other diseases of the circulatory system; Z81.8 Family history of other mental and behavioral disorders; Z83.3 Family history of diabetes mellitus; Z88.1 Allergy status to other antibiotic agents; Z55.9 Problems related to education and literacy, unspecified; Z59.9 Problem related to housing and economic circumstances, unspecified; Z63.9 Problem related to primary support group, unspecified; Z65.3 Problems related to other legal circumstances
CPT/HCPCS: 80053; 80061; 80307; 82962; 83036; 84439; 84443; 84703; 85025; 86592; 90686; G0480; J3420; Q9967

== ENCOUNTER 2024-08-18 09:32 | Inpatient (IN) | payer MEDICARE, MEDICAID ==
[~2024-08-18] VITALS: Ht 162.6 cm; Wt 81.2 kg
[~2024-08-18 09:32] MED LIST changes: +ACAM333T7 PO; +ARIP5TAB37 PO; -CLON-595 PO; -HALO2 PO; +LAMO-24 PO; -LAMO100 PO; +MELA5TAB40 PO; -METF-1211 PO; +MIRT-93 PO; +NALT50TA6 PO; +OMEG-135 PO; +PRAZ1 PO; -PREG50 PO; +SERT-440 PO
[2024-08-18] MEDS ORDERED: HYDR-4808 PO (10:43)
[2024-08-18] MEDS ORDERED: LAMO-24 PO (10:44)
[2024-08-18] MEDS ORDERED: PRAZ2 PO (10:44)
[2024-08-18] MEDS ORDERED: LOPERAMIDE HCL 2 MG CAPSULE PO PRN (10:45)
[2024-08-18] MEDS ORDERED: GuaiFENesin/D-METHORPHAN [SUGAR-FREE] 200-20MG/10 ML SYRUP UDCUP PO PRN (10:45)
[2024-08-18] MEDS ORDERED: MELATONIN 5 MG TABLET PO PRN (10:45)
[2024-08-18] MEDS ORDERED: HydrOXYzine PAMOATE 50 MG CAPSULE PO PRN (10:45)
[2024-08-18] MEDS ORDERED: QUEtiapine FUMARATE 100 MG TABLET PO PRN (10:45)
[2024-08-18] MEDS ORDERED: MAGNESIUM HYDROXIDE SUSPENSION 30 ML UDCUP PO PRN (10:45)
[2024-08-18] MEDS ORDERED: ZOLPIDEM TARTRATE 10 MG TABLET PO PRN (10:45)
[2024-08-18 11:40] LABS: GLUCOMETER DEV NAME(LOC) POC.BV; POC SARS-COV2 AG, FIA NEGATIVE (NEGATIVE)
[2024-08-18] MEDS: TUBERCULIN, PURIFIED PROTEIN DERIVATIVE 5 TU/0.1 ML SYRINGE ID ONE (12:42)
[2024-08-18 14:24] VITALS: BP 138/89; PULSE 82; RESP 17; TEMP 97.8; O2SAT 100
[2024-08-18] MEDS: LORazepam 2 MG TABLET PO PRN (15:53)
[2024-08-18 16:00] VITALS: BP 107/69; PULSE 81; RESP 16; TEMP 97.5; O2SAT 98
[2024-08-18] MEDS: THIAMINE 100 MG TABLET PO SCH (16:17)
[2024-08-18 20:00] VITALS: BP 116/70; PULSE 100; RESP 17; TEMP 98.2; O2SAT 100
[2024-08-18] MEDS: MIRTAZAPINE 15 MG TABLET PO SCH (20:23)
[2024-08-18] MEDS: TraZODone HCL 100 MG TABLET PO SCH (20:23)
[2024-08-18] MEDS: PRAZOSIN HCL 1 MG CAPSULE PO SCH (20:23)
[2024-08-19] MEDS: OMEGA-3/DHA/EPA/FISH OIL 1,000 MG CAPSULE PO SCH (08:20)
[2024-08-19] MEDS: SERTRALINE HCL 50 MG TABLET PO SCH (08:21)
[2024-08-19] MEDS: LamoTRIgine 100 MG TABLET PO SCH (08:21)
[2024-08-19] MEDS: ARIPiprazole 5 MG TABLET PO SCH (08:21)
[2024-08-19] MEDS: FOLIC ACID 1 MG TABLET PO SCH (08:21)
[2024-08-19] MEDS: MULTIVITAMINS WITH MINERALS, THERAPEUTIC TABLET PO SCH (08:21)
[2024-08-19] MEDS: NALTREXONE HCL 50 MG TABLET PO SCH (08:21)
[2024-08-19 08:26] VITALS: BP 118/77; PULSE 68; RESP 19; TEMP 97.6; O2SAT 98
[2024-08-19 08:42] LABS: BASOPHILS % (AUTO) 0.6 % (0.0-2.0); EOSINOPHILS % (AUTO) 1.1 % (1.0-6.0); HEMATOCRIT 33.4 % (36-46); HEMOGLOBIN 10.1 g/dL (12.0-16.0); LYMPHOCYTES # (AUTO) 1.7 K/uL (1.0-4.8); LYMPHOCYTES % (AUTO) 22.1 % (22.0-44.0); MEAN CORPUSCULAR HEMOGLOBIN 19.8 pg (26.0-34.0); MEAN CORPUSCULAR HGB CONC 30.2 G/dL (31.0-37.0); MEAN CORPUSCULAR VOLUME 66 fL (80-100); MONOCYTES # (AUTO) 0.4 K/uL (0.1-1.0); MONOCYTES % (AUTO) 5.7 % (2.0-9.0); NEUTROPHILS # (AUTO) 5.3 K/uL (1.8-7.7); NEUTROPHILS % (AUTO) 70.5 % (40.0-70.0); PLATELET COUNT (AUTO) 391 K/uL (150-450); RED BLOOD CELL COUNT(AUTO) 5.08 MIL/uL (4.00-5.20); RED CELL DISTRIBUTION WIDTH 18.2 % (11.5-14.5); WHITE BLOOD COUNT (AUTO) 7.5 K/uL (4.5-11.0)
[2024-08-19 08:44] LABS: RBC MORPHOLOGY COMMENT ABNORMAL RBC MORPH
[2024-08-19 08:46] LABS: HEMOGLOBIN A1C 5.2 % (3.8-5.6)
[2024-08-19 08:58] LABS: ALANINE AMINOTRANSFERASE 21 U/L (12-78); ALKALINE PHOSPHATASE 107 U/L (46-116); ANION GAP 6 mmol/L (8-16); ASPARTATE AMINOTRANSFERASE 20 U/L (15-37); BILIRUBIN,TOTAL 0.5 mg/dL (0.1-1.0); CARBON DIOXIDE 28 mmol/L (22-29); CHLORIDE 105 mmol/L (98-107); CHOL/HDL RATIO 2.4 (3.9-5.7); CHOLESTEROL 133 mg/dL (131-200); CREATININE 0.88 mg/dL (0.60-1.30); FREE T4 (FREE THYROXINE) 0.96 ng/dL (0.76-1.46); GLOMERULAR FILTR. RATE CALC > 60 mL/min (>60); GLUCOSE,RANDOM 80 mg/dL (70-110); HDL CHOLESTEROL 55 mg/dL (40-60); LDL CHOL (CALC.) 71 mg/dL (0-130); POTASSIUM 3.7 mmol/L (3.5-5.1); SODIUM SERUM 139 mmol/L (136-145); THYROID STIMULATING HORMONE 1.85 uIU/mL (0.36-3.74); TOTAL PROTEIN, SERUM 7.6 g/dL (6.4-8.2); TRIGLYCERIDES 35 mg/dL (15-150); UREA NITROGEN, BLOOD 18 mg/dL (7-18)
[2024-08-19] MEDS: INFLUENZA VIRUS VACCINE TVS (6MO+) 2024-25/PF 45 MCG/0.5 ML SYRINGE IM. ONE (14:37)
[2024-08-19] MEDS: PRAZOSIN HCL 1 MG CAPSULE PO SCH (20:13)
[2024-08-19] MEDS: MIRTAZAPINE 15 MG TABLET PO SCH (20:14)
[2024-08-19 20:44] VITALS: BP 107/68; PULSE 66; RESP 16; TEMP 97.3; O2SAT 99
[2024-08-19] MEDS: TraZODone HCL 50 MG TABLET PO SCH (20:50)
[2024-08-20] MEDS: PROMETHAZINE HCL 25 MG TABLET PO PRN (08:26)
[2024-08-20 09:07] LABS: HEPATITIS C AB (EIA) Non Reactive (Non Reactive)
[2024-08-20 09:11] VITALS: BP 133/79; PULSE 74; RESP 20; TEMP 97.3; O2SAT 98
[2024-08-20] MEDS: SERTRALINE HCL 50 MG TABLET PO SCH (09:46)
[2024-08-20] MEDS: MAG HYDROX/ALUMINUM HYD/SIMETH ES 30 ML SUSPENSION UDCUP PO PRN (09:50)
[2024-08-20 20:05] VITALS: BP 144/86; PULSE 87; RESP 18; TEMP 97.6; O2SAT 99
[2024-08-21 08:16] VITALS: BP 114/66; PULSE 71; RESP 16; TEMP 97.6; O2SAT 96
[2024-08-21 19:10] VITALS: RESP 18
[2024-08-21] MEDS: ACETAMINOPHEN 325 MG TABLET PO PRN (19:17)
[2024-08-21 20:17] VITALS: BP 125/80; PULSE 98; RESP 18; TEMP 98.2; O2SAT 95
[2024-08-22 08:10] VITALS: BP 136/92; PULSE 68; RESP 17; TEMP 97.4; O2SAT 98
[2024-08-22 20:20] VITALS: BP 142/86; PULSE 78; RESP 18; TEMP 98.1; O2SAT 100
[2024-08-22] MEDS: TraZODone HCL 100 MG TABLET PO SCH (20:29)
[2024-08-22] MEDS: MIRTAZAPINE 15 MG TABLET PO SCH (20:30)
[2024-08-23 08:11] VITALS: BP 114/63; PULSE 58; RESP 17; TEMP 97.9; O2SAT 96
[2024-08-23] MEDS: SERTRALINE HCL 50 MG TABLET PO SCH (08:41)
[2024-08-23] MEDS: MAG HYDROX/ALUMINUM HYD/SIMETH ES 30 ML SUSPENSION UDCUP PO PRN (09:16)
[2024-08-23] MEDS ORDERED: OMEG100033 PO (16:21)
[2024-08-23] MEDS ORDERED: NALT50TA33 PO (16:21)
[2024-08-23] MEDS ORDERED: PRAZ1 PO (16:21)
[2024-08-23] MEDS ORDERED: LAMO-24 PO (16:21)
[2024-08-23] MEDS ORDERED: TRAZ-257 PO (16:21)
[2024-08-23] MEDS: PRAZOSIN HCL 1 MG CAPSULE PO SCH (20:27)
[2024-08-23 21:39] VITALS: BP 122/81; PULSE 79; RESP 18; TEMP 97.3; O2SAT 97
[2024-08-24] MEDS: SERTRALINE HCL 100 MG TABLET PO SCH (08:17)
[2024-08-24 08:23] VITALS: BP 128/74; PULSE 79; RESP 17; TEMP 97.6; O2SAT 100
[2024-08-24] MEDS: MAG HYDROX/ALUMINUM HYD/SIMETH ES 30 ML SUSPENSION UDCUP PO PRN (09:43)
[2024-08-26] MEDS ORDERED: SERT-439 PO (13:31)
== END 2024-08-24 10:59 | disposition home or self-care (01) | DRG 885 ==
LOC: B2X 10:41
PROVIDERS: ADMIT Psychiatry & Neurology Psychiatry; ATTEND Psychiatry & Neurology Psychiatry
PROC: GZHZZZZ Group Psychotherapy (ICD-10-PCS; principal; 2024-08-18)
PROC: GZ51ZZZ Individual Psychotherapy, Behavioral (ICD-10-PCS; 2024-08-18)
DX: F31.30 Bipolar disorder, current episode depressed, mild or moderate severity, unspecified (principal); G93.41 Metabolic encephalopathy; R45.851 Suicidal ideations; E55.9 Vitamin D deficiency, unspecified; I10 Essential (primary) hypertension; Z20.822 Contact with and (suspected) exposure to COVID-19; D64.9 Anemia, unspecified; G47.33 Obstructive sleep apnea (adult) (pediatric); E11.9 Type 2 diabetes mellitus without complications; E66.9 Obesity, unspecified; F10.20 Alcohol dependence, uncomplicated; E03.8 Other specified hypothyroidism; Z88.1 Allergy status to other antibiotic agents; Z68.30 Body mass index [BMI] 30.0-30.9, adult; Z83.3 Family history of diabetes mellitus; Z91.148 Patient's other noncompliance with medication regimen for other reason; Z91.199 Patient's noncompliance with other medical treatment and regimen due to unspecified reason; F41.0 Panic disorder [episodic paroxysmal anxiety]
CPT/HCPCS: 80053; 80061; 83036; 84439; 84443; 85025; 86592; 86803; 87340; 90686

== ENCOUNTER 2024-09-23 15:19 | Inpatient (IN) | payer MEDICARE, MEDICAID ==
[~2024-09-23] VITALS: Ht 160 cm; Wt 82.8 kg
[~2024-09-23 15:19] MED LIST changes: -MIRT-93 PO; +NALT50TA33 PO; +OMEG100033 PO; +SERT-439 PO; -SERT-440 PO
[2024-09-23] MEDS ORDERED: ZOLPIDEM TARTRATE 10 MG TABLET PO PRN (16:45)
[2024-09-23] MEDS ORDERED: HALOPERIDOL 5 MG TABLET PO PRN (16:45)
[2024-09-23 17:36] LABS: GLUCOMETER DEV NAME(LOC) POC.BV; POC SARS-COV2 AG, FIA NEGATIVE (NEGATIVE)
[2024-09-23 18:41] VITALS: BP 126/91; PULSE 83; RESP 16; TEMP 97.5; O2SAT 99
[2024-09-23] MEDS ORDERED: MAGNESIUM HYDROXIDE SUSPENSION 30 ML UDCUP PO PRN (19:45)
[2024-09-23] MEDS ORDERED: ALBUTEROL SULFATE HFA 90 MCG/PUFF 8 GM INHALER IH PRN (19:45)
[2024-09-23] MEDS ORDERED: GuaiFENesin/D-METHORPHAN [SUGAR-FREE] 200-20MG/10 ML SYRUP UDCUP PO PRN (19:45)
[2024-09-23] MEDS ORDERED: LOPERAMIDE HCL 2 MG CAPSULE PO PRN (19:45)
[2024-09-23] MEDS ORDERED: PETROLATUM,WHITE 28 GM JELLY TP PRN (19:45)
[2024-09-23] MEDS ORDERED: DOCUSATE SODIUM 100 MG CAPSULE PO PRN (19:45)
[2024-09-23] MEDS ORDERED: ONDANSETRON 4 MG TABLET PO PRN (19:45)
[2024-09-23] MEDS ORDERED: IBUPROFEN 400 MG TABLET PO PRN (19:45)
[2024-09-23] MEDS ORDERED: NICOTINE 14 MG/24 HOUR PATCH TD PRN (19:45)
[2024-09-23] MEDS ORDERED: MAG HYDROX/ALUMINUM HYD/SIMETH ES 30 ML SUSPENSION UDCUP PO PRN (19:45)
[2024-09-23] MEDS ORDERED: CloNIDine HCL 0.1 MG TABLET PO PRN (19:45)
[2024-09-23 20:25] VITALS: BP 107/72; PULSE 70; RESP 18; TEMP 97.5; O2SAT 98
[2024-09-24 08:22] LABS: BASOPHILS % (AUTO) 0.5 % (0.0-2.0); EOSINOPHILS % (AUTO) 1.3 % (1.0-6.0); HEMATOCRIT 31.8 % (36-46); HEMOGLOBIN 9.5 g/dL (12.0-16.0); LYMPHOCYTES # (AUTO) 1.6 K/uL (1.0-4.8); LYMPHOCYTES % (AUTO) 27.5 % (22.0-44.0); MEAN CORPUSCULAR HEMOGLOBIN 19.1 pg (26.0-34.0); MEAN CORPUSCULAR HGB CONC 29.9 G/dL (31.0-37.0); MEAN CORPUSCULAR VOLUME 64 fL (80-100); MONOCYTES # (AUTO) 0.4 K/uL (0.1-1.0); MONOCYTES % (AUTO) 7.7 % (2.0-9.0); NEUTROPHILS # (AUTO) 3.7 K/uL (1.8-7.7); PLATELET COUNT (AUTO) 380 K/uL (150-450); RED BLOOD CELL COUNT(AUTO) 4.97 MIL/uL (4.00-5.20); RED CELL DISTRIBUTION WIDTH 17.9 % (11.5-14.5); WHITE BLOOD COUNT (AUTO) 5.8 K/uL (4.5-11.0)
[2024-09-24 08:31] LABS: ALCOHOL, BLOOD (SERUM) < 3 mg/dL (0-10)
[2024-09-24 08:32] LABS: HEMOGLOBIN A1C 5.5 % (3.8-5.6)
[2024-09-24 08:51] LABS: ALANINE AMINOTRANSFERASE 26 U/L (12-78); ALBUMIN 3.7 g/dL (3.4-5.0); ALKALINE PHOSPHATASE 117 U/L (46-116); ANION GAP 10 mmol/L (8-16); ASPARTATE AMINOTRANSFERASE 24 U/L (15-37); BILIRUBIN,TOTAL 0.7 mg/dL (0.1-1.0); CARBON DIOXIDE 29 mmol/L (22-29); CHLORIDE 108 mmol/L (98-107); CHOL/HDL RATIO 2.6 (3.9-5.7); CHOLESTEROL 137 mg/dL (131-200); CREATININE 0.86 mg/dL (0.60-1.30); GLOMERULAR FILTR. RATE CALC > 60 mL/min (>60); GLUCOSE,RANDOM 85 mg/dL (70-110); HDL CHOLESTEROL 52 mg/dL (40-60); LDL CHOL (CALC.) 70 mg/dL (0-130); POTASSIUM 3.7 mmol/L (3.5-5.1); SODIUM SERUM 147 mmol/L (136-145); T4 (THYROXINE) 8.5 mcg/dL (4.7-13.3); THYROID STIMULATING HORMONE 1.62 uIU/mL (0.36-3.74); TOTAL PROTEIN, SERUM 7.3 g/dL (6.4-8.2); TRIGLYCERIDES 73 mg/dL (15-150); UREA NITROGEN, BLOOD 11 mg/dL (7-18)
[2024-09-24 09:21] VITALS: BP 116/72; PULSE 60; RESP 16; TEMP 96.8; O2SAT 100
[2024-09-24 10:18] LABS: RBC MORPHOLOGY COMMENT ABNORMAL RBC MORPH
[2024-09-24] MEDS ORDERED: MELATONIN 5 MG TABLET PO PRN (15:00)
[2024-09-24] MEDS: MIRTAZAPINE 15 MG TABLET PO SCH (21:00)
[2024-09-24 21:08] VITALS: BP 117/79; PULSE 100; RESP 18; TEMP 97; O2SAT 98
[2024-09-25 08:46] VITALS: BP 123/69; PULSE 64; RESP 19; TEMP 98.9; O2SAT 98
[2024-09-25] MEDS: ARIPiprazole 5 MG TABLET PO SCH (09:27)
[2024-09-25] MEDS: NALTREXONE HCL 50 MG TABLET PO SCH (09:28)
[2024-09-25] MEDS: SERTRALINE HCL 50 MG TABLET PO SCH (09:28)
[2024-09-25] MEDS: LamoTRIgine 100 MG TABLET PO SCH (09:29)
[2024-09-25] MEDS: LORazepam 2 MG TABLET PO PRN (09:35)
[2024-09-25 20:20] VITALS: BP 113/75; PULSE 85; RESP 17; TEMP 98.3; O2SAT 97
[2024-09-26 08:07] VITALS: BP 148/60; PULSE 59; RESP 19; TEMP 97.9; O2SAT 95
[2024-09-26 10:11] LABS: ANION GAP 11 mmol/L (8-16); CALCIUM, TOTAL 9.4 mg/dL (8.8-10.5); CARBON DIOXIDE 27 mmol/L (22-29); CHLORIDE 105 mmol/L (98-107); CREATININE 0.87 mg/dL (0.60-1.30); GLOMERULAR FILTR. RATE CALC > 60 mL/min (>60); GLUCOSE,RANDOM 102 mg/dL (70-110); SODIUM SERUM 143 mmol/L (136-145); UREA NITROGEN, BLOOD 20 mg/dL (7-18)
[2024-09-26 12:52] LABS: APPEARANCE,URINE HAZY (CLEAR); BILIRUBIN,URINE NEGATIVE (NEGATIVE); COLOR,URINE YELLOW (YELLOW); GLUCOSE, URINE (UA) NEGATIVE (NEGATIVE); KETONES,URINE TRACE mg/dL (NEGATIVE); LEUKOCYTE ESTERASE ,URINE NEGATIVE (NEGATIVE); NITRATE,URINE NEGATIVE (NEGATIVE); OCCULT BLOOD,URINE NEGATIVE (NEGATIVE); PH,URINE 6.5 (5.0-8.0); PH,URINE DRUG SCREEN 6.5 (5.0-8.0); PROTEIN,URINE TRACE mg/dL (NEGATIVE); SPECIFIC GRAVITIY, URINE 1.033 (1.003-1.030)
[2024-09-26 15:09] LABS: ALCOHOL, URINE DRUG SCREEN NEGATIVE (NEGATIVE); AMPHET/METH SCREEN,URINE NEGATIVE (NEGATIVE); BARBITURATE SCREEN, URINE NEGATIVE (NEGATIVE); BENZODIAZEPINES SCREEN,URINE NEGATIVE (NEGATIVE); CANNABINOID SCREEN,URINE NEGATIVE (NEGATIVE); COCAINE SCREEN,URINE NEGATIVE (NEGATIVE); METHADONE SCREEN, URINE NEGATIVE (NEGATIVE); OPIATE SCREEN,URINE NEGATIVE (NEGATIVE); PHENCYCLIDINE SCREEN,URINE NEGATIVE (NEGATIVE)
[2024-09-26] MEDS: ACETAMINOPHEN 325 MG TABLET PO PRN (19:57)
[2024-09-26 19:58] VITALS: RESP 18
[2024-09-26 20:28] VITALS: BP 129/61; PULSE 65; RESP 17; TEMP 97.3; O2SAT 97
[2024-09-26 21:00] VITALS: RESP 18
[2024-09-27 08:37] VITALS: BP 133/81; PULSE 74; RESP 18; TEMP 98; O2SAT 98
== END 2024-09-27 10:28 | disposition home or self-care (01) | DRG 885 ==
LOC: B2X 16:49
PROVIDERS: ADMIT Psychiatry & Neurology Psychiatry; ATTEND Psychiatry & Neurology Psychiatry
PROC: GZ56ZZZ Individual Psychotherapy, Supportive (ICD-10-PCS; principal; 2024-09-24)
DX: F31.4 Bipolar disorder, current episode depressed, severe, without psychotic features (principal); E87.0 Hyperosmolality and hypernatremia; R45.851 Suicidal ideations; I10 Essential (primary) hypertension; E11.9 Type 2 diabetes mellitus without complications; Z79.4 Long term (current) use of insulin; Z20.822 Contact with and (suspected) exposure to COVID-19; J44.9 Chronic obstructive pulmonary disease, unspecified; K21.9 Gastro-esophageal reflux disease without esophagitis; E78.5 Hyperlipidemia, unspecified; E03.9 Hypothyroidism, unspecified; K74.60 Unspecified cirrhosis of liver; K76.9 Liver disease, unspecified; D64.9 Anemia, unspecified; F41.9 Anxiety disorder, unspecified; G47.00 Insomnia, unspecified; Z79.899 Other long term (current) drug therapy; Z88.1 Allergy status to other antibiotic agents
CPT/HCPCS: 80048; 80053; 80061; 80307; 81003; 83036; 84436; 84439; 84443; 85025; 86592; 87081; G0480